=== PATIENT | male | born 1995 | race Caucasian/White ===

== ENCOUNTER 2021-07-28 11:08 | Emergency (ER) | payer OTHER ==
[2021-07-28] MEDS ORDERED: Lidocaine 1% PF 2 ML SDV INJECT ONE (11:31)
== END 2021-07-28 12:31 | disposition home or self-care (01) ==
LOC: MW.ED 11:08
DX: S02.5XXA Fracture of tooth (traumatic), initial encounter for closed fracture (principal); S01.511A Laceration without foreign body of lip, initial encounter; W22.09XA Striking against other stationary object, initial encounter
CPT/HCPCS: 12011; 99282-25